=== PATIENT | female | born 1940 | race Caucasian/White ===

== ENCOUNTER → 2016-06-13 | Outpatient (CLI) | payer MEDICARE | LOC: RAD 11:21 | PROVIDERS: ATTEND Family Medicine | DX: R14.0 Abdominal distension (gaseous) (principal) | CPT/HCPCS: 74022 ==

== ENCOUNTER → 2016-08-01 | Outpatient (REF) | payer MEDICARE | LOC: LAB 10:26 | PROVIDERS: ATTEND Family Medicine | DX: E03.8 Other specified hypothyroidism (principal); I48.2 Chronic atrial fibrillation | CPT/HCPCS: 80162; 84443 ==

== ENCOUNTER → 2016-08-24 | Outpatient (REF) | payer MEDICARE ==
[~2016-08-24] MED LIST: ACET325T38 PO; ANTI1CAP5 PO; ASPI-860 PO; DIGO125T PO; FISH OIL500 M1 PO; LIOT5TAB3 PO; MAGN100T6 PO; MAGN250T7 PO; MULT-305 PO; OMEP20CA12 PO; THYR60TA27 PO; VALR1TAB PO; [UNRECOGNIZED DRUG - CODE] PO
[2016-08-24 11:35] LABS: BILIRUBIN,URINE Negative (Negative); COLOR,URINE Yellow; GLUCOSE, URINE (UA) Negative (Negative); LEUKOCYTE ESTERASE ,URINE 2+ (Negative); UROBILINOGEN,URINE 0.2 mg/dL (0.2-1.0)
[2016-08-24 11:38] LABS: CLARITY,URINE Slightly Cloudy
[2016-08-24 11:39] LABS: URINE CENTRIFUGED VOLUME 12 mL
[2016-08-24 11:42] LABS: RBC,URINE 0-2 /HPF
== END ==
LOC: LAB 11:14
PROVIDERS: ATTEND Family Medicine
DX: R39.15 Urgency of urination (principal); R82.99 Other abnormal findings in urine
CPT/HCPCS: 81003; 81015; 87088

== ENCOUNTER → 2016-08-30 | Outpatient (CLI) | payer MEDICARE ==
[~2016-08-30] MED LIST changes: +methylPREDNISolone 80 MG/ML (DEPO MEDROL) VIAL IM ONE
--- NOTE | 2016-08-31 08:40 | PAIN MANAGEMENT ---
Date of note: 08/30/2016 Procedure: Epidural steroid injection This is a 75-year-old female patient under the care of Dr. Juno Brumfield. The patient is not new to our service. She received two prior epidural steroid injections, I believe of which was in January 2016. She got results from the first one that was okay. Wanted to do an update injection and got great results from that. It has been from that point in time until now that we have seen her. She comes in today complaining of pain similar in that region. We did two L5-S1 epidural steroid injections previously. She had a repeat MRI done, which showed some disk bulge and degenerative changes at L4-5 being the worst areas. She also states her pain is more towards the outside of her legs, and sometimes on the front, and comes down to the balls of her feet and toes. This all follows the L4-5 dermatome level. Based on this presentation, we decided to proceed forward with an L4-5 epidural steroid injection. The patient was placed in the left lateral decubitus position after informed consent was obtained. Orders for procedure verified. Patient denies any bleeding tendencies. After informed consent obtained, the patient was positioned for the lumbar epidural steroid injection. The area was prepped and draped using aseptic technique. The skin and overlying tissues were localized using 3 mL of 1% Preservative-Free lidocaine using a 25-gauge 1.5-inch needle. A 20-gauge Tuohy needle was advanced, using "loss of resistance" technique, to the epidural space. No blood, cerebral spinal fluid, pain, or paresthesia noted on entry of the epidural space. A 1 mL solution of Depo-Medrol 80 mg was injected slowly without mass volume effect. The needle was then removed and the patient was turned to the sitting position where she remained for approximately 10 minutes. She is released with vital signs stable and faculties intact. She is asked to follow up with me via my cellphone in approximately 3 days. The patient states she understands these discharge instructions and I will follow her from there. Addendum: The patient's history states that she had an allergy to methylprednisolone. She has received two prior injections of this where this was not listed as an allergy. The patient does not ever remember having an allergy to any kind of steroid at all and never had any issues with any medications. She wishes to proceed as prior injections have as well. The patient tolerated the procedure well.
== END ==
LOC: PMC 13:19
PROVIDERS: ATTEND Family Medicine
DX: M51.16 Intervertebral disc disorders with radiculopathy, lumbar region (principal); I10 Essential (primary) hypertension; I48.91 Unspecified atrial fibrillation; M79.7 Fibromyalgia
CPT/HCPCS: 62322; J1040